=== PATIENT | female | born 2000 | race Two or more races ===

== ENCOUNTER 2021-01-12 16:54 | Inpatient (IN) | payer OTHER ==
[~2021-01-12] VITALS: Ht 162.6 cm; Wt 113.7 kg
[~2021-01-12 16:54] MED LIST: ALBU1.25 NEB; BUDE10.2 INH
--- NOTE | 2021-01-12 17:20 | NUR ---
SETTER OFF: EKG COMPLETED IN TRIAGE.
[2021-01-12] MEDS ORDERED: ALBUTEROL SULFATE 2.5 MG/3 ML NPPB ONE (17:30)
--- NOTE | 2021-01-12 18:20 | NUR ---
microarray specialist note: Pt to room from lobby
[2021-01-12] MEDS ORDERED: ALBUTEROL SULFATE 2.5 MG/3 ML ONE ×2 (18:30→19:10)
[2021-01-12] MEDS ORDERED: MAGNESIUM SULFATE PMX 2GM/50ML 50 ML IV ONE (18:30)
[2021-01-12] MEDS ORDERED: methylPREDNISolone SOD SUCC 125 MG/2 ML IVPush ONE (18:30)
[2021-01-12] MEDS ORDERED: SODIUM CHLORIDE 0.9% 1,000ML IVBOLUS ONE (18:30)
[2021-01-12] MEDS ORDERED: ALBUTEROL/IPRATROPIUM 2.5MG/0.5MG, 3 ML NPPB ONE (18:30)
--- NOTE | 2021-01-12 18:38 | NUR ---
PT WC'D TO ROOM 31 W/ C/O SX SOB SECONDARY TO ASTHMA. DOES NOT HAVE HOME INHALER. PT HAS GOTTEN WORSE OVER THE LAST FEW HOURS AND IS BEGINNING TO TRIPOD. BREATHING TX INITIATED. MONITORS APPLIED. PT BREATHING RAPIDLY W/ NOTED INSPIRATORY AND EXPIRATORY WHEEZES.
[2021-01-12] MEDS ORDERED: ALBUTEROL/IPRATROPIUM 2.5MG/0.5MG, 3 ML ONE (18:41)
[2021-01-12] MEDS ORDERED: MAGNESIUM SULFATE PMX 2GM/50ML 50 ML ONE (18:41)
[2021-01-12] MEDS ORDERED: methylPREDNISolone SOD SUCC 125 MG/2 ML ONE (18:41)
[2021-01-12] MEDS ORDERED: IPRATROPIUM 0.5 MG/2.5 ML INHA ONE (19:10)
[2021-01-12] MEDS ORDERED: BUDESONIDE 0.5 MG/2 ML INHA ONE (19:21)
--- NOTE | 2021-01-12 19:22 | NUR ---
PT TACHY IN THE 130-140'S. PT PANICKED STATING "I CAN'T BREATHE". PT RIPPIED OUT IV AND BEGAN TO PANIC. PLACED ON NON-REBREATHER. ERP DR. REZA AWARE. PER ERP START PT ON HOUR ESTELLA BREATHING TX W/ MIXED BREATHING TX MEDS. PT CALMER AND UNDERSTANDS IMPORTANCE OF PIV FOR MEDS AND BREATHING TX.
--- NOTE | 2021-01-12 19:47 | NUR ---
PT BREATHING BETTER. STATES IMPROVEMENT. NOW SPEAKING IN 3-4 WORD SENTENCES.
[2021-01-12] MEDS ORDERED: DEXTROSE 5% 1,000 ML IV SCH (20:00)
--- NOTE | 2021-01-12 20:53 | NUR ---
PT STATES MUCH IMPROVEMENT IN BREATHING. SPEAKING IN 7-10 WORD SENTENCES. NADN. VSS. NO LONGER DIAPHORETIC.
--- NOTE | 2021-01-12 21:18 | NUR ---
REPORT GIVEN TO GABI FRANKLIN.
[2021-01-12 21:29] LABS: BASOPHILS % (AUTO) 0 % (0-1); EOSINOPHILS % (AUTO) 2 % (1-7); LYMPHOCYTES % (AUTO) 6 % (22-44); MEAN CORPUSCULAR HEMOGLOBIN 29.6 pg (27.0-34.8); MEAN CORPUSCULAR HGB CONC 34.1 g/dL (32.4-35.8); MEAN PLATELET VOLUME 8.2 fL (7.4-10.4); MONOCYTES % (AUTO) 2 % (2-9); NEUTROPHILS % (AUTO) 91 % (42-75); PLATELET COUNT 317 x10^3/uL (130-400); RED BLOOD COUNT 5.37 x10^6/uL (3.82-5.3); RED CELL DISTRIBUTION WIDTH 14.1 % (9.6-15.2)
[2021-01-12 21:41] LABS: ALBUMIN 3.9 g/dL (3.4-5.0); ANION GAP 5 mmol/L (5-15); CALCIUM 9.1 mg/dL (8.5-10.1); CHLORIDE 112 mmol/L (98-107)
[2021-01-12 21:44] LABS: ALANINE AMINOTRANSFERASE 34 U/L (12-78); ALKALINE PHOSPHATASE 92 U/L (45-117); BILIRUBIN,TOTAL 0.2 mg/dL (0.2-1.0); CREATININE 0.86 mg/dL (0.55-1.02); TOTAL PROTEIN 8.8 g/dL (6.4-8.2)
--- NOTE | 2021-01-12 21:50 | NUR ---
POST BREATHING TREATMENT: PATIENT REPORT FEELING MUCH BETTER. HOWEVER, WHEEZING TO ALL COOMBS, PATIENT TRIPODING ROOM AIR 88% 2 WORD SENTENCES PEAK FLOW 150 (GOAL 450FOR HER AGE/HEIGHT) ERP MADE AWARE
--- NOTE | 2021-01-12 21:54 | NUR ---
ERP TO BEDSIDE- PLAN TO ADMIT
[2021-01-12] MEDS ORDERED: ACETAMINOPHEN 325 MG TABLET PO PRN (23:00)
[2021-01-12] MEDS ORDERED: KETOROLAC 30 MG/1 ML IV PRN (23:00)
[2021-01-12] MEDS ORDERED: ONDANSETRON 2MG/ML, 2ML IVPush PRN (23:00)
[2021-01-12] MEDS ORDERED: LABETALOL 5MG/ML, 20ML IVPush PRN (23:00)
[2021-01-12 23:43] VITALS: BP 145/76
[2021-01-13] MEDS ORDERED: FEXO1TAB29 PO (00:02)
[2021-01-13 00:03] VITALS: BP 133/80
[2021-01-13] MEDS: ALBUTEROL SULFATE 2.5 MG/3 ML NPPB SCH ×6 (02:29→23:00)
[2021-01-13] MEDS: ALBUTEROL SULFATE 2.5 MG/3 ML NPPB PRN ×2 (04:53→21:46)
[2021-01-13] MEDS ORDERED: LORazepam 1MG TABLET PO ONE (05:00)
[2021-01-13 05:39] LABS: BASOPHILS % (AUTO) 0 % (0-1); EOSINOPHILS % (AUTO) 0 % (1-7); LYMPHOCYTES % (AUTO) 9 % (22-44); MEAN CORPUSCULAR HEMOGLOBIN 29.6 pg (27.0-34.8); MEAN CORPUSCULAR HGB CONC 34.4 g/dL (32.4-35.8); MEAN PLATELET VOLUME 8.4 fL (7.4-10.4); MONOCYTES % (AUTO) 1 % (2-9); NEUTROPHILS % (AUTO) 90 % (42-75); PLATELET COUNT 331 x10^3/uL (130-400); RED BLOOD COUNT 5.21 x10^6/uL (3.82-5.3); RED CELL DISTRIBUTION WIDTH 14.3 % (9.6-15.2)
[2021-01-13 05:54] LABS: ANION GAP 8 mmol/L (5-15); CALCIUM 9.6 mg/dL (8.5-10.1); CHLORIDE 107 mmol/L (98-107)
[2021-01-13] MEDS ORDERED: ALBUTEROL SULFATE 2.5 MG/3 ML NPPB SCH (07:00)
[2021-01-13] MEDS: BUDESONIDE 0.5 MG/2 ML INHA INH SCH ×2 (09:00→18:27)
[2021-01-13 09:47] VITALS: BP 129/85
[2021-01-13 11:04] LABS: HCG UR SG 1.035 (1.003-1.030)
[2021-01-13] MEDS ORDERED: LORazepam 1MG TABLET ONE (13:34)
[2021-01-13] MEDS: methylPREDNISolone SOD SUCC 40 MG/ML IV SCH ×2 (14:31→20:16)
[2021-01-13 14:32] VITALS: BP 109/74
[2021-01-13 19:26] VITALS: BP 113/76
[2021-01-13] MEDS ORDERED: ALBUTEROL SULFATE 2.5MG/0.5ML ONE (23:22)
[2021-01-14 01:06] VITALS: BP 115/75
[2021-01-14] MEDS: methylPREDNISolone SOD SUCC 40 MG/ML IV SCH ×3 (03:11→15:05)
[2021-01-14] MEDS: ALBUTEROL SULFATE 2.5 MG/3 ML NPPB SCH ×5 (03:26→18:33)
[2021-01-14 04:29] LABS: MEAN CORPUSCULAR HEMOGLOBIN 29.6 pg (27.0-34.8); MEAN CORPUSCULAR HGB CONC 33.9 g/dL (32.4-35.8); MEAN PLATELET VOLUME 8.6 fL (7.4-10.4); PLATELET COUNT 355 x10^3/uL (130-400); RED BLOOD COUNT 5.13 x10^6/uL (3.82-5.3); RED CELL DISTRIBUTION WIDTH 14.2 % (9.6-15.2)
[2021-01-14 04:42] LABS: ANION GAP 9 mmol/L (5-15); CALCIUM 9.4 mg/dL (8.5-10.1); CHLORIDE 105 mmol/L (98-107)
[2021-01-14 04:44] LABS: CREATININE 0.93 mg/dL (0.55-1.02)
[2021-01-14 05:06] LABS: <PLATELET ESTIMATE> ADEQUATE; <PLT MORPHOLOGY> NORMAL PLT MORPH; <RBC MORPHOLOGY> NORMAL; BAND#(MANUAL) 0.49 x10^3/uL; BANDS%(MANUAL) 2 % (0-7); EOS#(MANUAL) 0.25 x10^3/uL (0.0-0.4); EOS% (MANUAL) 1 % (1-7); LYMPH#(MANUAL) 1.73 x10^3/uL (1-3.4); LYMPHS% (MANUAL) 7 % (22-44); MONOS#(MANUAL) 0.74 x10^3/uL (0.3-2.7); MONOS% (MANUAL) 3 % (2-9); MYELOCYTES# (MANUAL) 0.25 x10^3/uL (0-0); MYELOCYTES% (MANUAL) 1 % (0-0); REACTIVE LYMPHS # (MANUAL) 0.25 x10^3/uL (0-0); REACTIVE LYMPHS % (MANUAL) 1 % (0-0); SEGS% (MANUAL) 85 % (42-75)
[2021-01-14 07:46] VITALS: BP 98/61
[2021-01-14] MEDS: BUDESONIDE 0.5 MG/2 ML INHA INH SCH ×2 (09:58→18:34)
[2021-01-14] MEDS ORDERED: LORazepam 0.5MG TABLET PO PRN (10:30)
[2021-01-14 15:50] VITALS: BP 122/79
[2021-01-14] MEDS ORDERED: BUDE10.2 INH ×3 (17:16→17:33)
[2021-01-14] MEDS ORDERED: PRED5TAB PO ×3 (17:16→17:33)
[2021-01-14] MEDS ORDERED: ALBU1.25 NEB ×2 (17:16)
[2021-01-14] MEDS ORDERED: ALBU18HF INH (17:33)
== END 2021-01-14 19:15 | disposition home or self-care (01) | DRG 189 ==
LOC: ED 23:54 → 4WST 23:55
PROVIDERS: ADMIT Internal Medicine; ATTEND Internal Medicine
DX: J96.01 Acute respiratory failure with hypoxia (principal); J45.52 Severe persistent asthma with status asthmaticus; Z68.41 Body mass index [BMI] 40.0-44.9, adult; E66.01 Morbid (severe) obesity due to excess calories; Z20.822 Contact with and (suspected) exposure to COVID-19; J30.1 Allergic rhinitis due to pollen; Z83.3 Family history of diabetes mellitus; Z82.5 Family history of asthma and other chronic lower respiratory diseases; Z56.0 Unemployment, unspecified; Z71.3 Dietary counseling and surveillance
CPT/HCPCS: 36415; 96374; 99291; J7613; J7626; 71045; 80048; 80053; 81025; 83735; 84100; 85025; 93005; 94640; 94644; G0378; U0005; J2920; J2930; J3475; J7030; J7512; U0003